=== PATIENT | male | born 1995 | race Caucasian/White ===

== ENCOUNTER 2022-07-04 16:40 | Outpatient (CLI) | payer SELFPAY ==
[2022-07-04 17:10] LABS: Hematocrit 48.1 % (40.0-54.0); Hemoglobin 17.2 g/dL (14.0-18.0); Mean Corpuscular HGB Conc 35.8 g/dL (32.0-36.0); Mean Corpuscular Hemoglobin 35.7 pg (27.0-31.0); Mean Corpuscular Volume 99.8 fL (78.0-102.0); Mean Platelet Volume 9.7 fl (8.7-11.0); Platelet Count Result 130 K/mm3 (150-420); Red Blood Count 4.82 M/mm3 (4.70-6.10); Red Cell Distribution Width 16.2 % (11.6-14.4); White Blood Count 3.6 K/mm3 (4.8-10.8)
[2022-07-04 17:27] LABS: Alanine Aminotransferase 85 U/L (16-63); Albumin Level 3.6 g/dL (3.4-5.0); Alkaline Phosphatase 93 U/L (46-116); Anion Gap 5 mmol/L (8-16); Aspartate Amino Transferase 85 U/L (15-37); Band Neutrophils Percent 0 % (0-6); Basophils Percent Manual 0 % (0-1); Bilirubin,Total 0.6 mg/dL (0.00-1.00); Blood Urea Nitrogen 5 mg/dL (7-18); Calcium 8.7 mg/dL (8.5-10.1); Carbon Dioxide 32 mmol/L (21-32); Chloride 98 mmol/L (98-108); Eosinophils Absolute Manual 0.18 K/mm3 (0.02-0.5); Eosinophils Percent Manual 5 % (1-6); Estimated Glomerular Filt Rate > 60; Glucose 130 mg/dL (70-99); Lymphocytes Absolute Manual 1.44 K/mm3 (1.1-4.5); Lymphocytes Percent Manual 40 % (18-44); Monocytes Absolute Manual 0.25 K/mm3 (0.1-0.90); Monocytes Percent Manual 7 % (3-9); Neutrophils Absolute Manual 1.72 K/mm3 (1.3-6.7); Neutrophils Percent Manual 48 % (46-73); Osmolality Calculated 279 mOsm/kg (285-295); Platelet Estimate Adequate (Adequate); Potassium 4.2 mmol/L (3.5-5.1); Sodium 135 mmol/L (136-145); Total Cells Counted 100; Total Protein 8.6 g/dL (6.4-8.2)
== END 2022-07-04 16:41 | disposition home or self-care (01) ==
PROVIDERS: PCP Internal Medicine; Visit Provider Internal Medicine
DX: M79.89 Other specified soft tissue disorders (principal); U07.1 COVID-19
CPT/HCPCS: 36415; 80053; 85025; 85380

== ENCOUNTER 2023-09-19 09:27 | Outpatient (CLI) | payer OTHER, SELFPAY ==
--- NOTE | ~2023-09-19 | XR_ITS ---
XR heel RT min 2V 09/19/2023 09:50 Indication: Right heel pain. Patient stepped on glass. Procedure: 2 views right heel/os calcis Comparison: No prior studies for comparison. Findings: No fracture, subluxation or dislocation. No significant soft tissue abnormality. Possible s ubtle foreign body in the inferior soft tissues overlying the calcaneus.. Impression: 1: Possible linear foreign body in the heel soft tissues seen on lateral view only.. Reviewed, dictated and finalized at location B. Impression: 1: Possible linear foreign body in the heel soft tissues seen on lateral view o nly..
== END 2023-09-19 09:28 | disposition home or self-care (01) ==
LOC: CHSIMG 09:30
PROVIDERS: PCP Internal Medicine; Visit Provider Internal Medicine
DX: S99.921A Unspecified injury of right foot, initial encounter (principal)
CPT/HCPCS: 73650